=== PATIENT | male | born 1975 | race Caucasian/White ===

== ENCOUNTER 2016-07-27 08:22 | Emergency (ER) | payer OTHER ==
[~2016-07-27] VITALS: Ht 188 cm; Wt 69.8 kg
[~2016-07-27 08:22] MED LIST: NAPROXEN500 MG PO; OXYCODONE HCL5 MG PO; VALIUM5 MG PO
[2016-07-27 08:24] VITALS: BP 128/82
[2016-07-27] MEDS ORDERED: ULTRAM50 MG PO (09:21)
== END 2016-07-27 09:32 | disposition home or self-care (01) ==
LOC: EME 08:22
DX: M25.462 Effusion, left knee (principal); F17.200 Nicotine dependence, unspecified, uncomplicated
CPT/HCPCS: 73564; 99281; 99284